=== PATIENT | female | born 1995 | race Asian ===

== ENCOUNTER 2018-06-12 09:37 | Observation (INO) | payer SELFPAY | END 2018-06-12 11:40 | disposition home or self-care (01) | LOC: MLD 09:37 | PROVIDERS: ADMIT Obstetrics & Gynecology; ATTEND Obstetrics & Gynecology | DX: O62.9 Abnormality of forces of labor, unspecified (principal); Z3A.39 39 weeks gestation of pregnancy | CPT/HCPCS: G0378; J7120 ==